=== PATIENT | male | born 1980 | race Hispanic/Latino ===

== ENCOUNTER 2025-03-31 12:54 | Emergency (ER) | payer SELFPAY ==
[~2025-03-31] VITALS: Ht 172.7 cm; Wt 129.3 kg
[2025-03-31] MEDS: teTANUS/diphthERIA TOXOID [ADULT] 0.5 ML VIAL IM ONE (13:38)
[2025-03-31] MEDS: acetaMINOPHEN 500 MG TABLET PO ONE (13:51)
[2025-03-31] MEDS: LIDOCAINE HCL 1% 20 ML VIAL INJ ONE (13:51)
[2025-03-31] MEDS ORDERED: CEPH500B PO (14:43)
--- NOTE | 2025-03-31 14:44 | ERN ---
General Chief Complaint: Finger Injury Stated Complaint: FINGER INJURY Time Seen by MD: 12:55 Source: patient History of Present Illness Initial Comments Patient is a 44-year-old male coming in complaining of right hand middle finger injury. Per patient he was soon some physical activity and accidentally hit his right hand middle finger. Allergies: Coded Allergies: No Known Drug Allergies (Unverified Allergy, Unknown, 03/31/25) Past Medical History Past Medical History: No Pertinent History Medical History Other: lilo pmhx Past Surgical History: None ROS Dictation CONSTITUTIONAL: No chills, no fever, no weakness, no diaphoresis, no malaise. HEAD/FACE: No signs of trauma. EENT: No eye pain, no blurred vision, no tearing, no double vision, no ear p ain, no ear discharge, no nose pain, no nasal congestion, no throat pain, no throat swelling, no mouth pain. RESPIRATORY: No cough, no orthopnea, no SOB, no stridor, no wheezing. CARDIOVASCULAR: No chest pain, no edema, no palpitations, no syncope. GASTROINTESTINAL/ABDOMINAL: No abdominal pain, no constipation, no diarrhea, no nausea, no vomiting. GENITOURINARY: No abnormal discharge, no dysuria, no frequent urination, no hematuria. No complaints of pain in the genitals. MUSCULOSKELETAL: No back pain, no gout, no joint pain, no joint swelling, right hand middle finger discomfort INTEGUMENTARY: No change in color, no change in hair/nails, no dryness, no lesion, no lumps, no rash. NEUROLOGICAL/PSYCH: No anxiety, not depressed, no emotional problem, no headache, no numbness, no pre-existing deficit, no history of seizures, no tremors, no weakness. HEMATOLOGIC/LYMPHATIC: Not anemic, no history of blood clots, no apparent bleeding, no bruising, glands not swollen. All Systems Negative, Except as Noted. Physical Exam Physical Exam Dictation VITAL SIGNS: Reviewed. GENERAL APPEARANCE: Alert, oriented x3, no acute distress, obese. HEAD AND FACE: Non-traumatic. EYES: PERRL, pink conjunctivas, eyelid no trauma, anterior chamber clear. EARS: Pinnas intact and no signs of trauma or erythema. Ear canals clear and no discharge. TMs no erythema. NOSE: No discharge, no bleeding. OROPHARYNX: Mouth normal, teeth no caries, tongue pink. Pharynx clear, no erythema. Tonsils no exudates, no abscesses noted. Mucous membrane moist. NECK: Supple, non-tender, no thyromegaly, no masses, no JVD, no bruits. BREAST: Deferred. CHEST: No tenderness, no crepitus, no paradoxical movement, no retractions. LUNGS: Clear, well-ventilated, symmetric, no rales, no wheezing, no rhonchi, no stridor, good breath sounds bilaterally. HEART: Regular rate, regular rhythm, no murmur, no gallops. VASCULAR: No peripheral edema. ABDOMEN: Soft, positive bowel sounds, nondistended, no guarding, nontender, no rebound, no masses no hepatomegaly, no splenomegaly, no Morataya's sign, no hernias. RECTAL: Deferred. GENITAL: Deferred. NEUROLOGICAL: Normal speech, gross motor function intact, gross sensory function intact. MUSCULOSKELETAL: Neck nontender, full range of motion, back nontender, full range of motion. EXTREMITIES: Nontender, full range of motion. Right hand distal phalanges erythema abrasion nail injury as well SKIN: Color pink, dry, no turgor, no rash, no lacerations, no abrasions, no contusions. LYMPHATICS: Deferred. Results Laboratory and Microbiology Labs Reviewed?: Yes EKG/XRAY/US/CT/MRI X-RAY Comment X-ray right hand middle digit-distal phalanx fracture MDM MDM: Differential diagnosis: Distal phalanx fracture, nail injury, Rationale: Tests considered and ordered secondary to shared decision making include: Previous outside records reviewed: Old ER visits. Risk of complication and/or morbidity or mortality of patient management: None Medications-Per medication reconciliation Need for hospitalization: Patient does not meet criteria for hospitalization. Patient is a 44-year-old male coming in to be evaluated after he suffered an inj ury to the right hand middle finger. On physical exam there is fracture of the nail x-ray disclose a hairline fracture of the distal phalanx of the right hand middle finger. Digital block was performed nail was partially removed. Patient tolerated procedure well. One suture was placed for hemostasis purposes. ED Course Orders Procedure Category Date Status Time Finger(S) 2+Vws Rt RAD 03/31/25 Taken 13:01 Tetanus,Diphtheria PHA 6/28/25 Complete Tox [Adult] (Diphther 13:30 Lidocaine Hcl 1% 20ml PHA 03/31/25 Complete Vial (Lidocaine Hc 13:30 Acetaminophen 500mg PHA 03/31/25 Complete Tab (Tylenol 500mg T 13:30 Current Medications Medications (Trade) Dose Ordered Sig/Adeola Route PRN Reason Start Time Stop Time Status Last Admin Dose Admin Acetaminophen (TYLenol 500MG TAB) 1,000 mg ONCE ONCE PO 03/31/25 13:30 03/31/25 13:31 DC 03/31/25 13:51 Lidocaine HCl (Lidocaine HCl 1% 20ml Vial) 20 ml ONCE ONCE INJ 03/31/25 13:30 03/31/25 13:31 DC 03/31/25 13:51 Tetanus/ Diphtheria Toxoids Adsorbed (DiphthERIA-teTANUS TOXOID [ADULT]/ DECAVAC) 0.5 ml ONCE ONCE IM 03/31/25 13:30 03/31/25 13:31 DC 03/31/25 13:38 Vital Signs Date Time Temp Pulse Resp B/P (MAP) Pulse Ox O2 Delivery O2 Flow Rate FiO2 03/31/25 13:51 98.1 03/31/25 13:00 98.1 81 18 142/92 98 Room Air* 0 21 03/31/25 12:56 98.1 81 18 142/92 98 Room Air 0 Laceration/Wound Repair Laceration/Wound Repair : Wound Location: upper extremity Wound Length (cm): 1 Wound's Depth, Shape: superficial Wound Explored: clean Irrigated w/ Saline (ccs): 100 Betadine Prep?: Yes Anesthesia: 1% Lidocaine Volume Anesthetic (ccs): 5 Wound Debrided: minimal Wound Repaired With: sutures Suture Size/Type: 4:0 Number of Sutures: 1 DX & DISP Disposition: Discharge Departure Impression: Primary Impression: Phalanx, distal fracture of finger Additional Impression: Nailbed injury Condition: Stable Scripts Cephalexin Monohydrate (Keflex) 500 Mg Cap 1 CAP PO TID for 10 Days, #30 CAP 0 Refills Prov: DAVID WISE MD 03/31/25 Additional Instructions: FOLLOW-UP WITH PRIMARY CARE PROVIDER IN 1 TO 2 DAYS. TAKE MEDICATIONS DIRECTED HERE IN THE EMERGENCY ROOM. OKAY TO CONTINUE HOME MEDICATIONS UNLESS OTHERWISE DISCUSSED DURING YOUR VISIT IN THE EMERGENCY ROOM TODAY. RETURN TO YOUR NEAREST EMERGENCY ROOM IF SYMPTOMS WORSEN OR IF THERE IS NO IMPROVEMENT. CALL 911 IF YOU NEED IMMEDIATE ASSISTANCE. TAKE TYLENOL [id number] NEEDED AND IF NO CONTRAINDICATIONS ARE PRESENT. INCREASE ORAL HYDRATION. A WOUND CULTURE OR URINE CULTURE WAS ORDERED HERE IN THE EMERGENCY ROOM DEPARTMENT PLEASE FOLLOW-UP WITH PRIMARY CARE PROVIDER AND ADVISE THEM TO GET REPORTS FROM OUR FACILITY. IF YOU HAD ANY REENA WRAP/SPLINTS THAT WERE APPLIED HERE, PLEASE DO NOT REMOVE THEM UNTIL YOU SEE YOUR PRIMARY CARE OR SPECIALTY. Referrals: Referrals: SELF,REFERRAL (PCP) FAWAD ESTRELLA MD Time of Disposition: 14:43 DAVID WISE MD Mar 31, 2025 14:44
[2025-03-31 14:51] VITALS: TEMP 98.1
[2025-03-31 14:53] VITALS: BP 131/78; PULSE 64; RESP 18; TEMP 98; O2SAT 98
--- NOTE | 2025-03-31 14:59 | HMCIMG ---
EXAM: CR right Finger, 3 View. CLINICAL HISTORY: finger injury COMPARISON: None provided. FINDINGS: BONES: Mildly displaced, extra-articular fracture at the tip of the third distal phalanx. JOINTS: No dislocation. The joint spaces are normal. SOFT TISSUES: There is distal third finger soft tissue edema. IMPRESSION: 1. Mildly displaced fracture of the distal third phalanx fingertip with associated soft tissue swelling. /[place]
== END 2025-03-31 15:21 | disposition home or self-care (01) ==
LOC: EDH 12:54
DX: S62.632A Displaced fracture of distal phalanx of right middle finger, initial encounter for closed fracture (principal); S61.213A Laceration without foreign body of left middle finger without damage to nail, initial encounter; X58.XXXA Exposure to other specified factors, initial encounter; Y93.89 Activity, other specified; Y92.89 Other specified places as the place of occurrence of the external cause; Y99.8 Other external cause status
CPT/HCPCS: 12001; 73140; 90471; 90714; 99283